=== PATIENT | male | born 1995 | race Native Hawaiian/Other Pacific Islander ===

== ENCOUNTER 2023-01-27 09:45 | Outpatient (CLI) | payer BC, SELFPAY | END 2023-01-27 09:46 | disposition home or self-care (01) | PROVIDERS: PCP Family Medicine; Visit Provider Family Medicine | DX: Z00.00 Encounter for general adult medical examination without abnormal findings (principal); Z13.6 Encounter for screening for cardiovascular disorders; Z13.1 Encounter for screening for diabetes mellitus | CPT/HCPCS: 80061; 82947 ==

== ENCOUNTER 2024-01-27 07:55 | Outpatient (CLI) | payer BC, SELFPAY | END 2024-01-27 07:56 | disposition home or self-care (01) | LOC: NFLDREF 02-04 12:26 | PROVIDERS: PCP Family Medicine; Referring Provider Family Medicine; Visit Provider Family Medicine | DX: R73.01 Impaired fasting glucose (principal); Z13.220 Encounter for screening for lipoid disorders | CPT/HCPCS: 80061; 82947 ==

== ENCOUNTER 2025-09-12 16:29 | Outpatient (CLI) | payer BC, SELFPAY ==
--- NOTE | 2025-09-12 16:45 | CRLHL7_ITS ---
For Patients: As a result of the Century Cures Act, medical imaging exams and procedure reports are released immediately into your electronic medical record. You may view this report before your referring provider. If you have questions, please contact your health care provider. INDICATION: palpable lump superior to right testicle COMPARISON: none TECHNIQUE: Cruz scale imaging was performed of the scrotum. In addition color Doppler and spectral Doppler analysis was performed of the testes. FINDINGS: The testes demonstrate normal arterial and venous blood flow on color Doppler and spectral Doppler analysis. The testes have uniform echogenicity with no evidence of a suspicious mass or area of inflammation. The right testis measures 4.1 x 2.5 x 2.7 cm in size and the left testis measures 4.1 x 2.3 x 2.9 cm. The epididymis appears normal bilaterally. There is no evidence of a hydrocele or varicocele. IMPRESSION: Normal scrotal ultrasound. Dictated by Barrington Castillo MD @ 09/13/2025 6:35:41 AM (Electronically Signed)
== END 2025-09-12 16:30 | disposition home or self-care (01) ==
LOC: US 16:30
PROVIDERS: PCP Family Medicine
DX: N50.9 Disorder of male genital organs, unspecified (principal)
CPT/HCPCS: 76870; 93976